=== PATIENT | male | born 1950 | race Caucasian/White ===

== ENCOUNTER → 2018-04-18 | Outpatient (CLI) | payer MEDICARE, OTHER ==
[2018-04-18] MEDS: LIDOCAINE 1% (MPF) 5 ML VIAL SC (12:00)
== END | disposition home or self-care (01) ==
LOC: RAD 11:23
DX: N39.0 Urinary tract infection, site not specified (principal)
CPT/HCPCS: 36569; 71045; 76937